=== PATIENT | female | born 1980 | race Caucasian/White ===

== ENCOUNTER 2016-11-05 10:25 | Emergency (ER) | payer SELFPAY ==
[2016-11-05 10:40] VITALS: TEMP 97.2; O2SAT 100
[2016-11-05] MEDS ORDERED: HYDROcodone 10MG/APAP 325MG 1 EA TAB PO ONE (10:46)
--- NOTE | 2016-11-05 10:49 | ED.PDOC ---
History of Present Illness - General Chief Complaint: Dental/Mouth Stated Complaint: dental pain Time Seen by Provider: 11/05/16 10:45 Source: patient Exam Limitations: no limitations - History of Present Illness Initial Comments: PT REPORTS LEFT SIDED DENTAL PAIN SECONDARY TO DENTAL INFECTION AND TOOTH DECAY. PT IS CURRENTLY ON CLINDAMYCIN THAT WAS PRESCRIBED BY HER DENTIST. PT IS TAKING IBUPROFEN AND TYLENOL #3 BUT STATES THAT NEITHER RELIEVE THE PAIN AND TYLENOL #3 MAKES HER NAUSEOUS. PT HAS FOLLOW UP APPT FOR TOOTH EXTRACTION ON DEC 03. Timing/Duration: constant Severity: moderate Improving Factors: cold therapy - DRINKING COLD WATER Worsening Factors: nothing Associated Symptoms: denies symptoms Allergies/Adverse Reactions: Allergies NO KNOWN ALLERGY Allergy (Verified 11/05/16 10:40) Home Medications: Ambulatory Orders Clindamycin HCl 300 mg PO BID 11/05/16 Promethazine Tab [Phenergan Tablet] 25 mg PO Q6HRS PRN #15 tab 11/05/16 Tramadol HCl 50 mg PO Q6HRS PRN #30 tab 11/05/16 Tylenol #3 11/05/16 Review of Systems - Review of Systems Constitutional: Denies: fever, weakness EENTM: States: see HPI, mouth pain. Denies: throat pain Respiratory: Denies: cough, short of breath Cardiology: Denies: chest pain, palpitations Gastrointestinal/Abdominal: Denies: abdominal pain, vomiting Past Medical History (General) - Patient Medical History Hx Asthma: No Hx of COPD: No Hx Hypertension: No Hx Diabetes: No Surgical History: no surgical history - Vaccination History Hx Tetanus, Diphtheria Vaccination: No Hx Influenza Vaccination: No Hx Pneumococcal Vaccination: No - Social History Hx Tobacco Use: Yes - Female History Patient is a Female of Child Bearing Age (10 -59 yrs old): Yes Patient : No Family Medical History - Family History Mother Family History: Unknown Living Status: Unknown Physical Exam - Physical Exam General Appearance: Alert, Other - APPEARS UNCOMFORTABLE Ears, Nose, Throat: other - EXTENSIVE DECAY OF MANDIBULAR AND MAXILLARY MOLARS, NO SIGNIFICANT GINGIVAL EDEMA, NO FACIAL SWELLING NOTED Neck: non-tender, full range of motion Respiratory: no respiratory distress Neurologic: normal mood/affect, oriented x 3 Departure - Departure Clinical Impression: Pain due to dental caries Time of Disposition: 10:54 Disposition: Discharge to Home or Self Care Condition: Good Departure Forms: ED Discharge - Pt. Copy, Patient Portal Self Enrollment Instructions: DI for Tooth Decay, DI for Dental Pain Diet: resume usual diet Prescriptions: Promethazine Tab [Phenergan Tablet] 25 mg PO Q6HRS PRN #15 tab PRN Reason: Nausea/Vomiting Tramadol HCl 50 mg PO Q6HRS PRN #30 tab PRN Reason: Pain Home Medications: Ambulatory Orders Clindamycin HCl 300 mg PO BID 11/05/16 Promethazine Tab [Phenergan Tablet] 25 mg PO Q6HRS PRN #15 tab 11/05/16 Tramadol HCl 50 mg PO Q6HRS PRN #30 tab 11/05/16 Tylenol #3 11/05/16
[2016-11-05 11:11] VITALS: BP 120/86
== END 2016-11-05 11:09 | disposition home or self-care (01) ==
LOC: ER 10:25
DX: K02.9 Dental caries, unspecified (principal); Z87.891 Personal history of nicotine dependence

== ENCOUNTER 2016-11-30 08:03 | Emergency (ER) | payer SELFPAY ==
--- NOTE | 2016-11-30 08:27 | ED.PDOC ---
History of Present Illness - General Chief Complaint: Dental/Mouth Stated Complaint: facial swelling Time Seen by Provider: 11/30/16 08:25 Source: patient, RN notes reviewed, Vital Signs reviewed Exam Limitations: no limitations - History of Present Illness Initial Comments: She stated was seen by dentist for dental caries with dental abscess in october 2016 was prescibed amoxicillin but did not get better and she was then given clindamycin 5 days ago took it daily but gum swelling and face not better and also feels tongue swelled up. Timing/Duration: other - 5 days ago Severity: moderate Improving Factors: nothing Worsening Factors: eating - pain lower jaw right Associated Symptoms: denies symptoms Allergies/Adverse Reactions: Allergies NO KNOWN ALLERGY Allergy (Verified 11/05/16 10:40) Home Medications: Ambulatory Orders Clindamycin HCl 300 mg PO BID 11/05/16 Promethazine Tab [Phenergan Tablet] 25 mg PO Q6HRS PRN #15 tab 11/05/16 Tramadol HCl 50 mg PO Q6HRS PRN #30 tab 11/05/16 Tylenol #3 11/05/16 Gabapentin 300 mg PO BID #10 cap 11/30/16 Review of Systems - Review of Systems Constitutional: States: no symptoms reported EENTM: States: see HPI, mouth pain, mouth swelling Respiratory: States: no symptoms reported Cardiology: States: no symptoms reported Gastrointestinal/Abdominal: States: no symptoms reported Genitourinary: States: no symptoms reported Musculoskeletal: States: no symptoms reported Skin: States: no symptoms reported Neurological: States: no symptoms reported Endocrine: States: no symptoms reported Hematologic/Lymphatic: States: no symptoms reported Past Medical History (General) - Patient Medical History Hx Seizures: No Hx Stroke: No Hx Dementia: No Hx Asthma: No Hx of COPD: No Hx Cardiac Disorders: No Hx Congestive Heart Failure: No Hx Pacemaker: No Hx Hypertension: No Hx Thyroid Disease: No Hx Diabetes: No Hx Gastroesophageal Reflux: No Hx Renal Disease: No Hx Cancer: No Hx of HIV: No Hx Hepatitis C: No Hx MRSA: No Surgical History: no surgical history - Vaccination History Hx Tetanus, Diphtheria Vaccination: No Hx Influenza Vaccination: No Hx Pneumococcal Vaccination: No - Social History Hx Tobacco Use: Yes Years Tobacco Use: 18 Cigarettes Packs Per Day: 1 Hx Chewing Tobacco Use: No Hx Alcohol Use: No Hx Substance Use: No Hx Substance Use Treatment: No Hx Depression: No Feels Threatened In Home Enviroment: No Feels Threatened In a Relationship: No Hx Physical Abuse: No Hx Emotional Abuse: No Hx Suspected Abuse: No - Activities of Daily Living Patient Lives Alone: No - Female History Patient is a Female of Child Bearing Age (10 -59 yrs old): Yes Hx Last Menstrual Period: 11/26/16 Patient : No Family Medical History - Family History Mother Family History: No Known Living Status: Still Living Hx Family Asthma: No Hx Family Congestive Heart Failure: No Hx Family Hypertension: No Hx Family Stroke: No Hx Cardiac Disease: No Hx Family Diabetes: No Hx Family Cancer: No Physical Exam - Physical Exam General Appearance: Alert, No apparent distress Ears, Nose, Throat: hearing grossly normal, normal ENT inspection, normal pharynx, pharyngeal erythema, other - multiple deacayed teeth mostly on the right lower molars with gum and facial swelling Neck: non-tender, supple, lymphadenopathy (L) Respiratory: chest non-tender, lungs clear, normal breath sounds, no respiratory distress Cardiovascular/Chest: normal peripheral pulses, regular rate, rhythm, no edema Gastrointestinal/Abdominal: normal bowel sounds, non tender, soft, no organomegaly Extremity: normal range of motion, non-tender, normal inspection Neurologic: no motor/sensory deficits, alert, normal mood/affect, oriented x 3 Skin Exam: normal color, warm/dry Progress - Results/Orders Results/Orders: STREP TEST-negative - EKG/XRAY/CT CT: soft tissue -neck no abscess noted sialdenitis,periapical abscess CT Ordered: Yes Departure - Departure Clinical Impression: Dental abscess, Sialadenitis Time of Disposition: 10:19 Disposition: Discharge to Home or Self Care Condition: Good Departure Forms: ED Discharge - Pt. Copy, Patient Portal Self Enrollment Instructions: Tooth Abscess Prescriptions: Gabapentin 300 mg PO BID #10 cap Home Medications: Ambulatory Orders Clindamycin HCl 300 mg PO BID 11/05/16 Promethazine Tab [Phenergan Tablet] 25 mg PO Q6HRS PRN #15 tab 11/05/16 Tramadol HCl 50 mg PO Q6HRS PRN #30 tab 11/05/16 Tylenol #3 11/05/16 Gabapentin 300 mg PO BID #10 cap 11/30/16 Additional Instructions: ;CONTINUE WITH CLINDAMYCIN DIRECTED UNTIL FINISHED;SOFT DIET UNTIL BETTER; NEED TO SIGN UP WITH PRIMARY MD FOR REFERRAL TO ENT;FOLLOW UP WITH DENTIST; CONTINUE WITH TRAMADOL FOR PAIN;GARGLE WITH SALT WATER 4 X A DAY
[2016-11-30 09:23] VITALS: O2SAT 99
--- NOTE | 2016-11-30 09:50 | CT ---
EXAM DESCRIPTION: CT neck with contrast CLINICAL HISTORY: Soft tissue swelling of the neck on the left. COMPARISON: None. TECHNIQUE: Contrast enhanced spiral CT with intravenous iodinated nonionic contrast. Coronal and sagittal reformatted images FINDINGS: Periapical lucency left mandible premolar with a small defect in the lateral alveolar ridge. Finding consistent with dental martin and periapical abscess. There is surrounding soft tissue swelling and edema along the left mandible. Low density within the soft tissues along the base of the left tongue. Edema versus mildly prominent ducts in the left submandibular gland. The submandibular gland is slightly enlarged. There is no sialolithiasis. Surrounding soft tissue edema left submandibular and in the parapharyngeal fat. Thickening of the left platysma muscle with mild surrounding soft tissue edema. No loculated fluid collection/abscess. No pathologic enhancement There are multiple enlarged lymph nodes with increased enhancement. Dominant lymph node adjacent to the submandibular gland measuring about 9 mm transverse. Level 2 jugular chain lymph node measures about 10 mm transverse dimension. Other smaller lymph nodes are seen in the submental, submandibular, and posterior triangle on the left. Normal lymph nodes on the right Normal appearance of the parotid glands and right submandibular gland No mass lesion is seen in the nasopharynx, oropharynx, or larynx. No abnormality of the tongue Visualized intracranial contents are normal. Lung apices are normal. No mass or adenopathy in the visualized upper chest Thyroid gland is normal No acute bony abnormality IMPRESSION: Dental martin with periapical abscess left mandibular premolar. There is surrounding soft tissue edema and swelling. Also, there is edema along the course of the left submandibular gland and edema versus minimally prominent ducts accounting for the appearance of the submandibular gland. Distinction is difficult between sialoadenitis and soft tissue infection from dental martin/periapical abscess. Reactive lymphadenopathy primarily in the left neck. No soft tissue abscess Electronically signed by: Judah Burroughs MD 11/30/2016 09:47
[2016-11-30] MEDS ORDERED: PIPERACILLIN/TAZOBACTAM 3.375 GM VIAL IVPB ONE (09:57)
[2016-11-30] MEDS ORDERED: SODIUM CHLORIDE 0.9% 100ML 100 ML IVPB ONE (09:58)
[2016-11-30] MEDS: TETANUS,DIPHTHERIA,PERTUSSIS 1 EA SYG IM ONE (10:01)
[2016-11-30] MEDS: PIPERACILLIN/TAZOBACTAM 3.375 GM in SODIUM CHLORIDE 0.9% 100ML 100 ML IVPB ONE (10:03)
[2016-11-30 11:29] VITALS: BP 129/78; TEMP 100.6
== END 2016-11-30 11:35 | disposition home or self-care (01) ==
LOC: ER 08:03
DX: K11.20 Sialoadenitis, unspecified (principal); K04.7 Periapical abscess without sinus; F17.210 Nicotine dependence, cigarettes, uncomplicated; Z23 Encounter for immunization
CPT/HCPCS: 70491; 87070; 87880; 90715; J2543; J7050

== ENCOUNTER → 2020-03-18 | Outpatient (CLI) | payer OTHER ==
--- NOTE | 2020-03-19 10:12 | MAM ---
EXAM DESCRIPTION: 3D Diagnostic, Bilateral (accession [id number]), Breast,Bilateral (accession [id number]): Ultrasound CLINICAL HISTORY: 39 yearsFemaleABN CBE palpable mass posterior upper outer quadrant right breast. Palpation varies with menstrual cycle. Patient feels similar abnormality same location left breast. No personal or family history of breast cancer. Menarche age 11. Childbirth age 19. Premenopausal. No HRT Lifetime risk of developing breast cancer (Tyrer-Cuzick model)(%): 8.1. COMPARISON: None. TECHNIQUE: Bilateral LM, CC, and MLO projection full-field images, digital tomosynthesis technique. Bilateral 2-D digital full-field images: LM, CC, and MLO projections. CAD available for 2-D images.. Transcutaneous scanning of the bilateral breasts utilizing gonzalez-scale and Doppler modes. Scanning performed by the photographer scientific ; observation by Dr. Lozano FINDINGS: The breast parenchymal density pattern is: Heterogeneously dense breast tissue, which may obscure small masses. No skin thickening or nipple retraction The skin marker upper outer quadrant posterior third right breast. Bilateral solitary microcalcifications. Mostly circumscribed mass density 6:00 position left breast 3 to 4 cm from the nipple. Focal asymmetry middle third right breast abutting the posterior nipple line 4-5 cm from the nipple. No suspicious microcalcifications. No mammographic abnormality associated with the palpable regions.. Ultrasound: Scanning left breast retroareolar at 6:00. Hypoechoic mass with well-defined margins measuring 7.1 x 6 mm. Nonvascular. Wider than tall orientation with posterior acoustic enhancement consistent with a cyst. Left breast 2:00-6 cm from the nipple, corresponding with palpable lesion. Anechoic circumscribed structure with well-defined margins wider than tall orientation and not vascular consistent with a cyst. Dimensions are 7.1 x 6.9 mm. Scanning right breast 9:00 - 6 cm from the nipple in the region of the skin marker. Focal fibroglandular tissues with minimal fatty tissues. No ultrasound findings of abnormal tissue. Mostly fibroglandular tissue in the retroareolar right breast. Scanning right breast middle third of the posterior nipple line. No ultrasound abnormality. No overlying skin changes. IMPRESSION: Benign exam. BIRAD CATEGORY: 2 BENIGN FINDINGS. RECOMMENDATIONS: FOLLOW UP: Routine digital bilateral mammographic screening, at age 40 or 1 year from March 2020. Written communication explaining the IMPRESSION and follow-up, will be mailed to the patient and referring health care provider. The FINDINGS and the FOLLOW-UP plan were reviewed in person with the patient after the examination. According to the [employer], yearly mammograms are recommended starting at age 40 and continuing as long as a woman is in good health. Any breast change noted on a breast self-exam should be reported promptly to the patient's healthcare provider. Breast MRI is recommended for women with an approximately 20-25% or greater lifetime risk of breast cancer, including women with a strong family history of breast or ovarian cancer and women who have been treated for Hodgkin's disease. A negative mammographic report should not delay tissue diagnosis in patients with significant clinical history or physical findings. Extremely dense breast tissue limits the sensitivity of digital mammography. Electronically signed by: Marko Lozano MD 03/19/2020 10:10 AM CDT
== END ==
LOC: MAMMO 13:00
PROVIDERS: ATTEND Family Medicine
DX: N64.4 Mastodynia (principal); N64.52 Nipple discharge; N63.10 Unspecified lump in the right breast, unspecified quadrant
CPT/HCPCS: 76641; 77066; G0279